=== PATIENT | male | born 1955 | race Caucasian/White ===

== ENCOUNTER → 2020-03-10 12:54 | Outpatient (BNVA) | payer MEDICARE, SELFPAY | PROVIDERS: Family Provider Chiropractor Orthopedic; PCP Nurse Practitioner Family; Visit Provider Urology | DX: Z12.5 Encounter for screening for malignant neoplasm of prostate (principal); C67.9 Malignant neoplasm of bladder, unspecified; N39.9 Disorder of urinary system, unspecified; C67.8 Malignant neoplasm of overlapping sites of bladder | CPT/HCPCS: 81001 ==

== ENCOUNTER → 2021-05-26 08:27 | Outpatient (BNVA) | payer MEDICARE, SELFPAY | PROVIDERS: Family Provider Chiropractor Orthopedic; PCP Nurse Practitioner Family; Visit Provider Urology | DX: N40.1 Benign prostatic hyperplasia with lower urinary tract symptoms (principal); C67.8 Malignant neoplasm of overlapping sites of bladder | CPT/HCPCS: 81003 ==

== ENCOUNTER 2022-03-22 06:00 | Outpatient (RCR) | payer MEDICARE, SELFPAY | END 2022-04-17 23:59 | disposition home or self-care (01) | LOC: MPT 06:00 | PROVIDERS: PCP Nurse Practitioner Family; Referring Provider Orthopaedic Surgery; Visit Provider Orthopaedic Surgery | DX: Z47.89 Encounter for other orthopedic aftercare (principal); M25.562 Pain in left knee | CPT/HCPCS: 97110; 97140; 97162; G0283 ==

== ENCOUNTER 2022-04-18 06:00 | Outpatient (RCR) | payer MEDICARE, SELFPAY | END 2022-05-18 23:59 | disposition home or self-care (01) | LOC: MPT 06:00 | PROVIDERS: PCP Nurse Practitioner Family; Referring Provider Orthopaedic Surgery; Visit Provider Orthopaedic Surgery | DX: M17.12 Unilateral primary osteoarthritis, left knee (principal) | CPT/HCPCS: 97110; 97140 ==

== ENCOUNTER 2022-05-19 06:00 | Outpatient (RCR) | payer MEDICARE, SELFPAY | END 2022-06-17 23:59 | disposition home or self-care (01) | LOC: MPT 06:00 | PROVIDERS: PCP Nurse Practitioner Family; Visit Provider Orthopaedic Surgery | DX: Z47.89 Encounter for other orthopedic aftercare (principal); M25.562 Pain in left knee | CPT/HCPCS: 97110; 97116 ==

== ENCOUNTER → 2022-09-20 14:30 | Outpatient (BNVA) | payer MEDICARE, SELFPAY | PROVIDERS: PCP Family Medicine; Visit Provider Urology | DX: N39.9 Disorder of urinary system, unspecified (principal); Z12.5 Encounter for screening for malignant neoplasm of prostate; C67.8 Malignant neoplasm of overlapping sites of bladder; N40.1 Benign prostatic hyperplasia with lower urinary tract symptoms | CPT/HCPCS: 52000; 81003; 87086; 88112 ==